=== PATIENT | male | born 1975 | race Hispanic/Latino ===

== ENCOUNTER 2021-09-05 12:35 | Emergency (ER) | payer OTHER ==
[2021-09-05] MEDS ORDERED: FAMOTIDINE 20 MG TAB ONE (15:18)
[2021-09-05] MEDS ORDERED: IBUPROFEN 400 MG TAB ONE (15:19)
--- NOTE | 2021-09-05 15:37 | EDPHYS ---
Physician Documentation [facility] Name: Luis A Jeffries Age: 45 yrs Sex: Male : 1975 Arrival Date: 09/05/2021 Time: 12:43 Bed 12 Private MD: ED Physician Mono Null HPI: 09/05 18:26 This 45 yrs old Male presents to ER via Ambulatory with complaints of Sore kdr Throat, Body aches. 18:26 Patient presents with upper respiratory symptoms for the past 3 days. These have kdr included sore throat, body aches and headache. Patient is otherwise healthy appearing and does not appear toxic at the time of presentation. Onset: The symptoms/episode began/occurred gradually, 3 day(s) ago. Severity of symptoms: At their worst the symptoms were mild moderate just prior to arrival, in the emergency department the symptoms are unchanged. The patient has not experienced similar symptoms in the past. The patient has not recently seen a physician. Historical: - Allergies: 12:49 No Known Allergies; ss - Home Meds: 12:49 None [Active]; ss - PMHx: 12:49 None; ss - PSHx: 12:49 None; ss - Immunization history:: Client reports receiving the 2nd dose of the Covid vaccine. - Social history:: Smoking status: Patient/guardian denies using tobacco, but has a distant history of tobacco abuse. ROS: 18:26 Constitutional: Patient has had fever and chills but no weight loss Eyes: Negative for kdr injury, pain, redness, and discharge, ENT: Negative for injury, pain, and discharge, Neck: Negative for injury, pain, and swelling, Cardiovascular: Negative for chest pain, palpitations, and edema, Respiratory: Negative for shortness of breath, cough, wheezing, and pleuritic chest pain, Abdomen/GI: Negative for abdominal pain, nausea, vomiting, diarrhea, and constipation, Back: Negative for injury and pain, MS/Extremity: Negative for injury and deformity, Skin: Negative for injury, rash, and discoloration, Neuro: Negative for headache, weakness, numbness, tingling, and seizure activity. Psych: Negative for depression, anxiety, suicide ideation, homicidal ideation, and hallucinations, Allergy/Immunology: Negative for hives, rash, and allergies, Endocrine: Negative for neck swelling, polydipsia, polyuria, polyphagia, and marked weight changes, Hematologic/Lymphatic: Negative for swollen nodes, abnormal bleeding, and unusual bruising. 18:26 Constitutional: Positive for chills, malaise. Exam: 18:26 Constitutional: This is a well developed, well nourished patient who is awake, alert, kdr and in no acute distress. Head/Face: Normocephalic, atraumatic. Eyes: Pupils equal round and reactive to light, extra-ocular motions intact. Lids and lashes normal. Conjunctiva and sclera are non-icteric and not injected. Cornea within normal limits. Periorbital areas with no swelling, redness, or edema. Neck: Trachea midline, no thyromegaly or masses palpated, and no cervical lymphadenopathy. Supple, full range of motion without nuchal rigidity, or vertebral point tenderness. No Meningismus. Chest/axilla: Normal chest wall appearance and motion. Nontender with no deformity. No lesions are appreciated. Cardiovascular: Regular rate and rhythm with a normal S1 and S2. No gallops, murmurs, or rubs. Normal PMI, no JVD. No pulse deficits. Respiratory: Lungs have equal breath sounds bilaterally, clear to auscultation and percussion. No rales, rhonchi or wheezes noted. No increased work of breathing, no retractions or nasal flaring. Abdomen/GI: Soft, non-tender, with normal bowel sounds. No distension or tympany. No guarding or rebound. No evidence of tenderness throughout. Back: No spinal tenderness. No costovertebral tenderness. Full range of motion. Skin: Warm, dry with normal turgor. Normal color with no rashes, no lesions, and no evidence of cellulitis. MS/ Extremity: Pulses equal, no cyanosis. Neurovascular intact. Full, normal range of motion. Neuro: Awake and alert, GCS 15, oriented to person, place, time, and situation. Cranial nerves II-XII grossly intact. Motor strength 5/5 in all extremities. Sensory grossly intact. Cerebellar exam normal. Normal gait. Psych: Awake, alert, with orientation to person, place and time. Behavior, mood, and affect are within normal limits. Vital Signs: 12:48 BP 121 / 81; Pulse 96; Resp 15; Temp 97.6(TE); Pulse Ox 99% ; Weight 88.45 kg; Height 6 ss ft. 2 in. (187.96 cm); Pain 6/10; 12:48 Body Mass Index 25.04 (88.45 kg, 187.96 cm) ss MDM: 15:36 Patient medically screened. kdr 18:38 Data reviewed: vital signs, nurses notes, lab test result(s), radiologic studies. kdr Counseling: I had a detailed discussion with the patient and/or guardian regarding: the historical points, exam findings, and any diagnostic results supporting the discharge/admit diagnosis, lab results, the need for outpatient follow up. 09/05 13:03 Order name: Flu; Complete Time: 14:52 ss 09/05 13:03 Order name: COVID-19 SARS RT PCR (Document "Date of Onset" if Symptomatic); Complete ss Time: 14:52 09/05 15:01 Order name: Strep; Complete Time: 15:35 kdr 09/05 15:26 Order name: Throat Culture EDMS Administered Medications: 15:14 Drug: Ibuprofen 800 mg Route: PO; ss 15:50 Follow up: Response: No adverse reaction ss 15:15 Drug: Pepcid (famotidine) 20 mg Route: PO; ss 15:50 Follow up: Response: No adverse reaction ss Disposition Summary: 09/05/21 15:36 Discharge Ordered Location: Home kdr Problem: new kdr Symptoms: have improved kdr Condition: Stable kdr Diagnosis - SARS-associated coronavirus as the cause of diseases classified elsewhere kdr Followup: kdr - With: Private Physician - When: 2 - 3 days - Reason: If symptoms return, Further diagnostic work-up, Recheck today's complaints, Continuance of care, Re-evaluation by your physician Discharge Instructions: - Discharge Summary Sheet kdr - Form - Excuse from Work, School, or Physical Activity kdr - COVID-19 kdr - Things to Know about the COVID-19 Pandemic - [facility] kdr - 10 Things You Can Do to Manage Your COVID-19 Symptoms at Home - [facility] kdr - Viral Illness, Adult kdr - COVID-19: Quarantine vs. Isolation - [facility] kdr - Prevent the Spread of COVID-19 if You Are Sick - [facility] kdr Forms: - Medication Reconciliation Form kdr - Thank You Letter kdr Prescriptions: - Ibuprofen 800 mg Oral Tablet - take 1 tablet by ORAL route every 8 hours As needed take with food; 15 tablet; kdr Refills: 0, Product Selection Permitted Signatures: Dispatcher [employer] Mono Boyle MD MD kdr Smirch, Shelby RN RN ss
--- NOTE | 2021-09-05 15:37 | ER ---
Nurse's Notes [facility] Name: Luis A Jeffries Age: 45 yrs Sex: Male : 1975 Arrival Date: 09/05/2021 Time: 12:43 Bed 12 Private MD: Diagnosis: SARS-associated coronavirus as the cause of diseases classified elsewhere Presentation: 09/05 12:48 Chief complaint: Patient states: sore throat, body aches and headache that began 3 days ss ago. Coronavirus screen: Client presents with at least one sign or symptom that may indicate coronavirus-19. Ebola Screen: Patient denies exposure to infectious person. Patient denies travel to an Ebola-affected area in the 21 days before illness onset. Initial Sepsis Screen: Does the patient meet any 2 criteria? No. Patient's initial sepsis screen is negative. Does the patient have a suspected source of infection? No. Patient's initial sepsis screen is negative. Risk Assessment: Do you want to hurt yourself or someone else? Patient reports no desire to harm self or others. Onset of symptoms was October 02, 2021. 12:48 Method Of Arrival: Ambulatory ss 12:48 Acuity: YASMEEN 4 ss Historical: - Allergies: 12:49 No Known Allergies; ss - Home Meds: 12:49 None [Active]; ss - PMHx: 12:49 None; ss - PSHx: 12:49 None; ss - Immunization history:: Client reports receiving the 2nd dose of the Covid vaccine. - Social history:: Smoking status: Patient/guardian denies using tobacco, but has a distant history of tobacco abuse. Screenin:28 Abuse screen: Denies threats or abuse. Denies injuries from another. Nutritional ss screening: No deficits noted. Tuberculosis screening: Never had TB. Fall Risk None identified. Assessment: 13:28 General: Appears in no apparent distress. comfortable, Behavior is calm, cooperative, ss Denies fever, feeling ill, fatigue, chills. Pain: Complains of pain in generalize headache, and body aches Pain currently is 6 out of 10 on a pain scale. Neuro: Murrell Agitation-Sedation Scale (RASS): 0 - Alert and Calm Level of Consciousness is awake, alert, obeys commands, Oriented to person, place, time, situation. Cardiovascular: Capillary refill < 3 seconds is brisk in bilateral fingers Patient's skin is warm and dry. Respiratory: Airway is patent Respiratory effort is even, unlabored, Respiratory pattern is regular, symmetrical, Breath sounds are clear bilaterally. GI: Patient currently denies abdominal pain, nausea, vomiting. : No signs and/or symptoms were reported regarding the genitourinary system. EENT: Oral mucosa is moist. Throat is clear. Derm: Skin is intact, is healthy with good turgor, Skin is dry, Skin is pink, warm \T\ dry. normal. Musculoskeletal: Circulation, motion, and sensation intact. Range of motion: intact in all extremities, Swelling absent. 14:12 Reassessment: Patient appears in no apparent distress at this time. Patient and/or ss family updated on plan of care and expected duration. Pain level reassessed. Patient is alert, oriented x 3, equal unlabored respirations, skin warm/dry/pink. 14:12 Reassessment: Patient appears in no apparent distress at this time. Patient and/or ss family updated on plan of care and expected duration. Pain level reassessed. Patient is alert, oriented x 3, equal unlabored respirations, skin warm/dry/pink. Vital Signs: 12:48 BP 121 / 81; Pulse 96; Resp 15; Temp 97.6(TE); Pulse Ox 99% ; Weight 88.45 kg; Height 6 ss ft. 2 in. (187.96 cm); Pain 6/10; 12:48 Body Mass Index 25.04 (88.45 kg, 187.96 cm) ED Course: 12:43 Patient arrived in ED. mr 12:49 Triage completed. ss 12:49 Arm band placed on right wrist. ss 12:58 Mono Null MD is Attending Physician. kdr 13:02 Freda Cuevas, CHARLI is Primary Nurse. ss 13:28 Patient has correct armband on for positive identification. Bed in low position. ss 14:12 No provider procedures requiring assistance completed. Patient did not have IV access ss during this emergency room visit. 15:11 Strep Sent. zm 15:15 Strep Sent. ss Administered Medications: 15:14 Drug: Ibuprofen 800 mg Route: PO; ss 15:50 Follow up: Response: No adverse reaction ss 15:15 Drug: Pepcid (famotidine) 20 mg Route: PO; ss 15:50 Follow up: Response: No adverse reaction ss Medication: 13:28 VIS not applicable for this client. ss Outcome: 15:36 Discharge ordered by . kdr 15:49 Discharged to home ambulatory. ss 15:49 Condition: good 15:49 Discharge instructions given to patient, family, Instructed on discharge instructions, follow up and referral plans. medication usage, Demonstrated understanding of instructions, follow-up care, medications, Prescriptions given X 1. 15:51 Patient left the ED. ss Signatures: Mono Null MD MD kdr Rivera, Mary mr Smirch, Shelby, CHARLI RN ss Ondina Mullen Corrections: (The following items were deleted from the chart) 13:02 12:48 88.45 kg; Height 6 ft. 2 in.; BMI: 25.0; Pain 6/10; ss ss
[2021-09-05 16:17] VITALS: BP 121/81; TEMP 97.6; O2SAT 99
== END 2021-09-05 15:51 | disposition home or self-care (01) ==
LOC: ER 12:35
DX: U07.1 COVID-19 (principal)
CPT/HCPCS: 87070; 87081; 87804 ×2; 99283; U0003